=== PATIENT | male | born 1995 | race Hispanic/Latino ===

== ENCOUNTER 2021-10-05 17:55 | Emergency (ER) | payer OTHER ==
[~2021-10-05] VITALS: Ht 172.7 cm; Wt 85.0 kg
[2021-10-05 20:06] VITALS: BP 138/77
== END 2021-10-05 20:06 | disposition home or self-care (01) | DRG 605 ==
LOC: ED 17:55
PROC: 0HQLXZZ Repair Left Lower Leg Skin, External Approach (ICD-10-PCS; principal; 2021-10-05)
DX: S81.812A Laceration without foreign body, left lower leg, initial encounter (principal); X58.XXXA Exposure to other specified factors, initial encounter

== ENCOUNTER 2022-03-28 17:02 | Emergency (ER) | payer OTHER ==
[~2022-03-28] VITALS: Ht 172.7 cm; Wt 72.7 kg
[2022-03-28] MEDS ORDERED: CEPHALEXIN500 M1 PO (17:09)
[2022-03-28 19:34] VITALS: BP 115/83
== END 2022-03-28 19:47 | disposition home or self-care (01) | DRG 605 ==
LOC: ED 17:02
PROC: 0HQGXZZ Repair Left Hand Skin, External Approach (ICD-10-PCS; principal; 2022-03-28)
DX: S61.211A Laceration without foreign body of left index finger without damage to nail, initial encounter (principal); W22.8XXA Striking against or struck by other objects, initial encounter; Y99.0 Civilian activity done for income or pay